=== PATIENT | female | born 1965 | race Caucasian/White ===

== ENCOUNTER 2023-09-21 08:29 | Day surgery (SDC) | payer OTHER ==
[2023-09-17 12:43] VITALS: BMI 33.5
[2023-09-21 09:42] VITALS: RESP 18
[2023-09-21 10:36] VITALS: TEMP 97.6
[2023-09-21 10:48] VITALS: BP 114/62; PULSE 60
== END 2023-09-21 10:30 | disposition home or self-care (01) ==
LOC: FASU-ENDO 08:29
PROVIDERS: ATTEND Internal Medicine Gastroenterology
PROC: 0DB68ZX Excision of Stomach, Via Natural or Artificial Opening Endoscopic, Diagnostic (ICD-10-PCS; 2023-09-21)
PROC: 0DB98ZX Excision of Duodenum, Via Natural or Artificial Opening Endoscopic, Diagnostic (ICD-10-PCS; principal; 2023-09-21 09:34)
DX: K29.50 Unspecified chronic gastritis without bleeding (principal); K44.9 Diaphragmatic hernia without obstruction or gangrene
CPT/HCPCS: 88305-TC; 88342-TC